=== PATIENT | male | born 1985 | race Caucasian/White ===

== ENCOUNTER 2021-04-19 10:14 | Emergency (ER) | payer BC ==
[~2021-04-19] VITALS: Ht 185.4 cm; Wt 75.0 kg
[2021-04-19] MEDS ORDERED: FAMOTIDINE 20MG/2ML VIAL IV STA (10:26)
[2021-04-19] MEDS ORDERED: ONDANSETRON HCL 4MG/2ML INJ IV STA (10:26)
[2021-04-19] MEDS ORDERED: LORAZEPAM 2MG/ML CPJ IV ONE (10:30)
[2021-04-19] MEDS ORDERED: SODIUM CHLORIDE 0.9% 1,000 ML IV ONE (10:30)
[2021-04-19 11:09] LABS: BASOPHILS % 0.2 % (0.0-2.0); HEMATOCRIT. 40.4 % (42.0-52.0); HEMOGLOBIN. 13.9 g/dL (14.0-18.0); LYMPHOCYTES % 7.3 % (20.0-50.0); MEAN CORPUSCULAR HEMOGLOBIN 32.5 pg (28.0-32.0); MEAN CORPUSCULAR VOLUME 94.7 fL (80.0-94.0); MEAN PLATELET VOLUME 7.7 fl (7.4-10.4); MONOCYTES % 2.8 % (2.0-8.0); NEUTROPHILS % 89.7 % (40.0-76.0); PLATELET 243 x1000/uL (130-400); RED BLOOD CELL COUNT 4.26 mill/uL (4.7-6.1); RED CELL DISTRIBUTION WIDTH 12.9 % (11.6-14.6)
[2021-04-19 11:16] LABS: CHLORIDE 108 mEq/L (98-107)
[2021-04-19 11:19] LABS: PROTHROMBIN TIME 10.3 sec (9.6-11.0)
[2021-04-19] MEDS ORDERED: MORPHINE SULFATE 4 MG/ML CPJ (NOT FOR IM USE) IV ONE (12:45)
[2021-04-19 14:00] VITALS: BP 142/83
== END 2021-04-19 14:15 | disposition home or self-care (01) ==
LOC: ER 10:14
DX: R10.84 Generalized abdominal pain (principal); F41.9 Anxiety disorder, unspecified; R11.2 Nausea with vomiting, unspecified; F12.10 Cannabis abuse, uncomplicated; F17.200 Nicotine dependence, unspecified, uncomplicated; E86.0 Dehydration
CPT/HCPCS: 36415; 71045; 80053; 83690; 84484; 85025; 85610; 93005; 96361; 96374; 96375; 99285; J2060; J2405; J3490; J7030; Z7610